=== PATIENT | male | born 1950 | race Caucasian/White ===

== ENCOUNTER 2017-01-23 14:20 | Emergency (ER) | payer MEDICARE, OTHER ==
[~2017-01-23] VITALS: Ht 180.3 cm; Wt 108.0 kg
[~2017-01-23 14:20] MED LIST: CLARITIN10 MG PO; LANSOPRAZOLE30 MG PO; LIPITOR10 MG PO; LORTAB 500 MG-71 TAB PO; SYMBICORT1 AER IH
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
[2017-01-23 15:16] LABS: URINE BILIRUBIN - DIPSTICK NEGATIVE (NEG); URINE BLOOD TRACE-INTACT (NEG)
[2017-01-23 15:22] LABS: URINE SQUAMOUS CELLS OCC #/hpf (OCC)
[2017-01-23 15:24] LABS: AMPHETAMINES/METAMPHETAMINES NEGATIVE ng/mL (<1000)
--- NOTE | 2017-01-23 17:15 | RADIOLOGY REPORT PS360 ---
KNEE-3 VIEWS-RT HISTORY: Pain following injury ORDERING PHYSICIAN: Margi Otoole MD PATIENT AGE: 66 years COMPARISON: None FINDINGS: There is a longitudinal lucency along the right aspect of the patella. This may only be related to a bipartite patella. One cannot however exclude fracture based on this exam. Patient also has a suprapatellar effusion. Minimal calcification is noted of the lateral compartment probably due to some mild spurring. IMPRESSION: Longitudinal lucency of the patella which may be related to bipartite patella. Correlation with clinical findings needed as patellar fracture cannot be excluded Suprapatellar effusion
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
--- NOTE | 2017-01-23 17:52 | RADIOLOGY REPORT PS360 ---
[id number] VIEWS HISTORY: Left chest/rib pain following injury fell on the ribs ORDERING PHYSICIAN: Margi Otoole MD PATIENT AGE: 66 years COMPARISON: None FINDINGS: A frontal view of the chest shows atelectatic changes in the left lower lobe.. Multiple views of the Left ribs were obtained. No fracture or dislocation. No lytic or blastic change. There are old right fifth and sixth rib fractures. IMPRESSION: No acute left-sided rib fracture apparent. Consider follow-up study in 7-[address] with 3-D reformats if symptoms persist
--- NOTE | 2017-01-23 17:54 | RADIOLOGY REPORT PS360 ---
CHEST(2 VIEWS-NOT PORTABLE) HISTORY: Chest pain following injury fell on the ribs ORDERING PHYSICIAN: Margi Otoole MD PATIENT AGE: 66 years COMPARISON: None available FINDINGS: Unremarkable cardiovascular structures. There is increased density in retrocardiac region on the left which may be due to atelectasis, infiltrate, or contusion. No evidence of pneumothorax or pleural effusion. There are old right-sided rib fractures with pleural thickening. Degenerative changes are present in the thoracic spine. IMPRESSION: Left lower lobe airspace disease which may be due to atelectasis, infiltrate, or contusion
[2017-01-23] MEDS ORDERED: HYDROCODONE-APA1 TA2 PO (17:57)
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
--- NOTE | 2017-01-23 17:59 | RADIOLOGY REPORT PS360 ---
PELVIS AP ONLY HISTORY: Pain following injury ORDERING PHYSICIAN: Margi Otoole MD PATIENT AGE: 66 years COMPARISON: None FINDINGS: No fracture or dislocation. No significant degenerative change. No lytic or blastic change. The SI joints have an unremarkable appearance. Unremarkable soft tissues. IMPRESSION: Negative pelvis.
[2017-01-23 18:53] VITALS: BP 150/88
--- NOTE | 2017-01-29 18:12 | RADIOLOGY REPORT PS360 ---
FEMUR-RT-2 VIEWS HISTORY: Pain, injury ORDERING PHYSICIAN: Margi Otoole MD PATIENT AGE: 66 years COMPARISON: None FINDINGS: Mild osteoarthritic changes are present at the hip. No fracture or dislocation. No lytic or blastic change. Suprapatellar effusion is present. IMPRESSION: 1. Mild osteoarthritis of the right hip. 2. Knee joint effusion
== END 2017-01-23 18:54 | disposition home or self-care (01) ==
LOC: ER 14:20
PROVIDERS: Emergency Medicine
DX: S82.401A Unspecified fracture of shaft of right fibula, initial encounter for closed fracture (principal); S22.059A Unspecified fracture of T5-T6 vertebra, initial encounter for closed fracture; S22.069A Unspecified fracture of T7-T8 vertebra, initial encounter for closed fracture; S22.079A Unspecified fracture of T9-T10 vertebra, initial encounter for closed fracture; W55.22XA Struck by cow, initial encounter; Y92.79 Other farm location as the place of occurrence of the external cause; Q74.1 Congenital malformation of knee; M25.461 Effusion, right knee; Z88.0 Allergy status to penicillin; Z88.6 Allergy status to analgesic agent; Z79.899 Other long term (current) drug therapy; E78.5 Hyperlipidemia, unspecified; J44.9 Chronic obstructive pulmonary disease, unspecified; F11.10 Opioid abuse, uncomplicated